=== PATIENT | male | born 1965 | race Caucasian/White ===

== ENCOUNTER 2018-03-18 00:14 | Outpatient (CLI) | payer BC, SELFPAY ==
[2018-03-18 10:39] LABS: HCT 45.3 % (40.0-50.0); HGB 15.9 g/dL (13.5-17.5); Mean Corp. HGB Concentration 35.1 g/dL (32.0-36.0); Mean Corpuscular Hemoglobin 30.2 pg (27.0-33.0); Mean Platelet Volume 9.6 fL (8.0-11.0); Platelet Count 182 x1000/uL (130-400); RBC 5.27 m/cumm (4.50-6.00); RBC Distribution Width 12.7 % (11.8-14.1); White Blood Cell Count 4.57 k/cumm (4.4-10.8)
[2018-03-18 10:59] LABS: ALT 32 U/L (12-78); AST 20 U/L (15-37); Albumin 3.9 g/dL (3.4-5.0); Alkaline Phosphatase 89 U/L (46-116); Anion Gap 6.8 mmol/L (3-11); BUN 19 mg/dL (7-18); Bilirubin, Total 0.6 mg/dL (0.2-1.0); CO2 30.2 mmol/L (21.0-32.0); CREATININE 1.26 mg/dL (0.70-1.30); Calcium 9.5 mg/dL (8.5-10.1); Chloride 105 mmol/L (98-107); Cholesterol 256 mg/dL (50-200); Estimated GFR 59.64 (mL/min/1.73m2); Glucose 102 mg/dL (70-100); HDL Cholesterol 43 mg/dL (40-60); LDL CHOLESTEROL 157 mg/dL (<100); Potassium 4.7 mmol/L (3.5-5.1); Sodium 142 mmol/L (136-145); Total Protein 6.8 g/dL (6.4-8.2); Triglyceride 207 mg/dL (30-150)
[2018-03-18 11:01] LABS: Hemoglobin A1C 5.5 % (4.5-6.2)
== END 2018-03-18 00:34 ==
PROVIDERS: PCP Nurse Practitioner; Visit Provider Nurse Practitioner
DX: E78.5 Hyperlipidemia, unspecified (principal); F20.9 Schizophrenia, unspecified; R73.01 Impaired fasting glucose
CPT/HCPCS: 36415; 80053; 80061; 83721; 85027; 83036

== ENCOUNTER 2018-06-17 00:58 | Outpatient (CLI) | payer BC, SELFPAY ==
[2018-06-17 09:25] LABS: Abs Immature Grans 0.03 k/cumm (0.0-0.09); Absolute Basophil Count 0.03 k/cumm (0.0-0.2); Absolute Lymphocyte Count 1.59 k/cumm (1.2-3.4); Absolute Monocyte Count 0.46 k/cumm (0.11-0.7); Absolute Neutrophil Count 2.91 k/cumm (1.2-6.7); Basophils % 0.6; HCT 45.6 % (40.0-50.0); HGB 16.2 g/dL (13.5-17.5); Immature Grans % 0.6; Lymphocytes % 31.1; Mean Corp. HGB Concentration 35.5 g/dL (32.0-36.0); Mean Corpuscular Hemoglobin 30.1 pg (27.0-33.0); Mean Corpuscular Volume 84.8 fL (80-95); Mean Platelet Volume 9.2 fL (8.0-11.0); Neutrophils % 56.7; Platelet Count 184 x1000/uL (130-400); RBC 5.38 m/cumm (4.50-6.00); RBC Distribution Width 12.7 % (11.8-14.1); White Blood Cell Count 5.12 k/cumm (4.4-10.8)
[2018-06-17 10:30] LABS: Cholesterol 231 mg/dL (50-200); HDL Cholesterol 41 mg/dL (40-60); LDL CHOLESTEROL 147 mg/dL (<100); Triglyceride 199 mg/dL (30-150)
== END 2018-06-17 01:18 ==
PROVIDERS: Nurse Practitioner Psychiatric/Mental Health; PCP Nurse Practitioner; Visit Provider Nurse Practitioner
DX: F20.9 Schizophrenia, unspecified (principal); E78.5 Hyperlipidemia, unspecified
CPT/HCPCS: 36415; 80061; 83721; 85025

== ENCOUNTER 2019-03-03 00:41 | Outpatient (CLI) | payer BC, SELFPAY ==
[2019-03-05 14:14] LABS: ALT 28 U/L (16-63); AST 18 U/L (15-37); Albumin 4.2 g/dL (3.4-5.0); Alkaline Phosphatase 90 U/L (46-116); Anion Gap 8.3 mmol/L (3-11); BUN 20 mg/dL (7-18); Bilirubin, Total 0.6 mg/dL (0.2-1.0); CO2 30.7 mmol/L (21.0-32.0); CREATININE 1.16 mg/dL (0.70-1.30); Calcium 9.4 mg/dL (8.5-10.1); Calculated LDL 190 mg/dL; Chloride 105 mmol/L (98-107); Cholesterol 265 mg/dL (<200); Glucose 96 mg/dL (74-106); HDL Cholesterol 41 mg/dL (40-60); Potassium 4.5 mmol/L (3.5-5.1); Sodium 144 mmol/L (136-145); Total Protein 7.2 g/dL (6.4-8.2); Triglyceride 172 mg/dL (<150)
[2019-03-06 08:55] LABS: Hemoglobin A1C 5.5 % (3.8-5.6)
== END 2019-03-03 01:01 ==
PROVIDERS: PCP Nurse Practitioner; Visit Provider Nurse Practitioner
DX: E11.9 Type 2 diabetes mellitus without complications (principal); E78.5 Hyperlipidemia, unspecified
CPT/HCPCS: 80053; 80061; 85027; 83036

== ENCOUNTER 2019-03-15 11:37 | Outpatient (CLI) | payer BC, SELFPAY ==
[2019-03-15 12:09] LABS: HCT 45.4 % (40.0-50.0); Mean Corp. HGB Concentration 35.2 g/dL (32.0-36.0); Mean Corpuscular Hemoglobin 29.9 pg (27.0-33.0); Mean Corpuscular Volume 84.9 fL (80-95); Mean Platelet Volume 9.4 fL (8.0-11.0); Platelet Count 209 x1000/uL (130-400); RBC 5.35 m/cumm (4.50-6.00); RBC Distribution Width 12.8 % (11.8-14.1); White Blood Cell Count 4.88 k/cumm (4.4-10.8)
== END 2019-03-15 11:57 ==
PROVIDERS: PCP Nurse Practitioner; Visit Provider Nurse Practitioner
DX: D72.9 Disorder of white blood cells, unspecified (principal)
CPT/HCPCS: 36415; 85027

== ENCOUNTER 2020-03-19 04:55 | Outpatient (CLI) | payer BC, SELFPAY ==
[2020-03-19 08:34] LABS: HGB 15.9 g/dL (13.5-17.5); MCH 29.8 pg (27.0-33.0); MCHC 34.6 % (32.0-36.0); MCV 86.3 fL (80-95); Platelet Count 178 10^3/uL (130-400); RBC 5.33 10^6/uL (4.36-5.78); RDW 12.2 % (11.8-14.1); RDW-SD 37.9 fL; WBC 5.28 10^3/uL (4.4-10.8)
[2020-03-19 11:01] LABS: ALT 26 U/L (16-63); AST 17 U/L (15-37); Albumin 4.1 g/dL (3.4-5.0); Alkaline Phosphatase 87 U/L (46-116); Anion Gap 8.9 mmol/L (3-11); BUN 17 mg/dL (7-18); Bilirubin, Total 0.9 mg/dL (0.2-1.0); CO2 28.1 mmol/L (21.0-32.0); CREATININE 1.24 mg/dL (0.70-1.30); Calcium 8.8 mg/dL (8.5-10.1); Calculated LDL 148 mg/dL (<100); Chloride 104 mmol/L (98-107); Cholesterol 232 mg/dL (<200); Glucose 100 mg/dL (74-106); HDL Cholesterol 41 mg/dL (40-60); Potassium 4.8 mmol/L (3.5-5.1); Sodium 141 mmol/L (136-145); Total Protein 6.8 g/dL (6.4-8.2); Triglyceride 217 mg/dL (<150)
== END 2020-03-19 05:15 ==
PROVIDERS: PCP Nurse Practitioner; Visit Provider Nurse Practitioner
DX: E78.5 Hyperlipidemia, unspecified (principal); F20.9 Schizophrenia, unspecified
CPT/HCPCS: 36415; 80053; 80061; 85027

== ENCOUNTER 2021-04-03 01:57 | Outpatient (CLI) | payer BC, SELFPAY ==
[2021-04-03 09:10] LABS: HCT 47.3 % (40.0-50.0); HGB 16.1 g/dL (13.5-17.5); MCH 29.3 pg (27.0-33.0); MCV 86.2 fL (80-95); MPV 9.3 fL (8.0-11.0); Platelet Count 198 10^3/uL (130-400); RBC 5.49 10^6/uL (4.36-5.78); RDW 12.2 % (11.8-14.1); RDW-SD 38.7 fL; WBC 5.19 10^3/uL (4.4-10.8)
[2021-04-03 09:21] LABS: Hemoglobin A1C 5.2 % (<5.7)
[2021-04-03 10:03] LABS: ALT 26 U/L (16-63); AST 18 U/L (15-37); Alkaline Phosphatase 93 U/L (46-116); Anion Gap 7.9 mmol/L (3-11); BUN 18 mg/dL (7-18); Bilirubin, Total 0.5 mg/dL (0.2-1.0); CO2 30.1 mmol/L (21.0-32.0); CREATININE 1.2 mg/dL (0.70-1.30); Calculated LDL 167 mg/dL (<100); Chloride 103 mmol/L (98-107); Cholesterol 250 mg/dL (<200); Glucose 105 mg/dL (74-106); HDL Cholesterol 47 mg/dL (40-60); Potassium 4.5 mmol/L (3.5-5.1); Sodium 141 mmol/L (136-145); Triglyceride 181 mg/dL (<150)
== END 2021-04-03 01:58 | disposition home or self-care (01) ==
LOC: LBO 01:57
PROVIDERS: PCP Nurse Practitioner; Visit Provider Nurse Practitioner
DX: E78.5 Hyperlipidemia, unspecified (principal); F20.9 Schizophrenia, unspecified; R73.01 Impaired fasting glucose; E11.9 Type 2 diabetes mellitus without complications
CPT/HCPCS: 36415; 80053; 80061; 85027; 83036

== ENCOUNTER 2022-04-06 03:22 | Outpatient (CLI) | payer OTHER, SELFPAY ==
[2022-04-06 07:54] LABS: Abs Immature Grans 0.01 10^3/uL (0.0-0.06); Absolute Basophil Count 0.04 10^3/uL (0.0-0.2); Absolute Eosinophil Count 0.13 10^3/uL (0.0-0.7); Absolute Lymphocyte Count 1.74 10^3/uL (1.2-3.4); Absolute Monocyte Count 0.44 10^3/uL (0.1-0.8); Basophils % 0.8; Eosinophils % 2.6; HCT 46.6 % (40.0-50.0); Immature Grans % 0.2; Lymphocytes % 35.1; MCH 29.7 pg (27.0-33.0); MCHC 34.3 % (32.0-36.0); MCV 87 fL (80-95); MPV 9.3 fL (8.0-11.0); Monocytes % 8.9; Neutrophils % 52.4; Platelet Count 174 10^3/uL (130-400); RBC 5.38 10^6/uL (4.36-5.78); RDW 12.1 % (11.8-14.1); RDW-SD 38.3 fL; WBC 4.96 10^3/uL (4.4-10.8)
[2022-04-06 08:04] LABS: Hemoglobin A1C 5.3 % (<5.7)
[2022-04-06 08:44] LABS: ALT 22 U/L (16-63); AST 20 U/L (15-37); Albumin 4.1 g/dL (3.4-5.0); Alkaline Phosphatase 93 U/L (46-116); Anion Gap 6.9 mmol/L (3-11); BUN 20 mg/dL (7-18); Bilirubin, Total 0.6 mg/dL (0.2-1.0); CO2 29.1 mmol/L (21.0-32.0); CREATININE 1.2 mg/dL (0.70-1.30); Calcium 9.6 mg/dL (8.5-10.1); Calculated LDL 190 mg/dL (<100); Chloride 104 mmol/L (98-107); Cholesterol 269 mg/dL (<200); Glucose 106 mg/dL (74-106); HDL Cholesterol 49 mg/dL (40-60); Potassium 4.5 mmol/L (3.5-5.1); Sodium 140 mmol/L (136-145); Total Protein 7.2 g/dL (6.4-8.2); Triglyceride 153 mg/dL (<150)
== END 2022-04-06 03:23 | disposition home or self-care (01) ==
LOC: LBO 03:22
PROVIDERS: PCP Nurse Practitioner; Visit Provider Nurse Practitioner
DX: R73.01 Impaired fasting glucose (principal); E78.5 Hyperlipidemia, unspecified; F20.9 Schizophrenia, unspecified; Z79.899 Other long term (current) drug therapy
CPT/HCPCS: 36415; 80053; 80061; 83036; 85025

== ENCOUNTER 2023-04-28 04:22 | Outpatient (CLI) | payer OTHER, SELFPAY ==
[2023-04-28 08:12] LABS: Abs Immature Grans 0.03 10^3/uL (0.0-0.06); Absolute Basophil Count 0.06 10^3/uL (0.0-0.2); Absolute Eosinophil Count 0.15 10^3/uL (0.0-0.7); Absolute Lymphocyte Count 1.66 10^3/uL (1.2-3.4); Absolute Monocyte Count 0.54 10^3/uL (0.1-0.8); Absolute Neutrophil Count 2.62 10^3/uL (1.2-6.7); Basophils % 1.2; HCT 48.5 % (40.0-50.0); HGB 16.6 g/dL (13.5-17.5); Immature Grans % 0.6; Lymphocytes % 32.8; MCH 29.4 pg (27.0-33.0); MCHC 34.2 % (32.0-36.0); MCV 86 fL (80-95); MPV 8.9 fL (8.0-11.0); Monocytes % 10.7; Neutrophils % 51.7; Platelet Count 210 10^3/uL (130-400); RBC 5.65 10^6/uL (4.36-5.78); RDW 12.7 % (11.8-14.1); RDW-SD 39.3 fL; WBC 5.06 10^3/uL (4.4-10.8)
[2023-04-28 08:15] LABS: Hemoglobin A1C 5.2 % (<5.7)
[2023-04-28 08:25] LABS: ALT 32 U/L (16-63); AST 19 U/L (15-37); Alkaline Phosphatase 104 U/L (46-116); Anion Gap 11.3 mmol/L (3-11); BUN 22 mg/dL (7-18); Bilirubin, Total 0.6 mg/dL (0.2-1.0); CO2 27.7 mmol/L (21.0-32.0); CREATININE 1.2 mg/dL (0.70-1.30); Calcium 9.8 mg/dL (8.5-10.1); Calculated LDL 183 mg/dL (<100); Chloride 105 mmol/L (98-107); Cholesterol 265 mg/dL (<200); Estimated GFR 69.66 (mL/min/1.73m2); Glucose 114 mg/dL (74-106); HDL Cholesterol 57 mg/dL (40-60); Potassium 4.8 mmol/L (3.5-5.1); Sodium 144 mmol/L (136-145); Total Protein 7.5 g/dL (6.4-8.2); Triglyceride 129 mg/dL (<150)
[2023-04-28 18:46] LABS: PSA, Screening 0.7 ng/mL (<=3.5)
== END 2023-04-28 04:23 | disposition home or self-care (01) ==
LOC: LBO 04:22
PROVIDERS: PCP Nurse Practitioner; Referring Provider Nurse Practitioner; Visit Provider Nurse Practitioner
DX: E78.5 Hyperlipidemia, unspecified (principal); F20.9 Schizophrenia, unspecified; R73.01 Impaired fasting glucose; R35.0 Frequency of micturition
CPT/HCPCS: 36415; 80053; 80061; 84153; 83036; 85025

== ENCOUNTER 2024-05-04 00:42 | Outpatient (CLI) | payer OTHER, SELFPAY ==
[2024-05-04 08:09] LABS: Abs Immature Grans 0.02 10^3/uL (0.0-0.06); Absolute Basophil Count 0.04 10^3/uL (0.0-0.2); Absolute Lymphocyte Count 1.67 10^3/uL (1.2-3.4); Absolute Monocyte Count 0.49 10^3/uL (0.1-0.8); Basophils % 0.8 %; HCT 46.3 % (40.0-50.0); HGB 15.9 g/dL (13.5-17.5); Immature Grans % 0.4 %; Lymphocytes % 33.9 %; MCH 30.3 pg (27.0-33.0); MCHC 34.3 % (32.0-36.0); MCV 88 fL (80-95); MPV 9.2 fL (8.0-11.0); Neutrophils % 52.9 %; Platelet Count 186 10^3/uL (130-400); RBC 5.25 10^6/uL (4.36-5.78); RDW 12.6 % (11.8-14.1); RDW-SD 40.6 fL; WBC 4.92 10^3/uL (4.4-10.8)
[2024-05-04 08:20] LABS: Hemoglobin A1C 5.4 % (<5.7)
[2024-05-04 08:30] LABS: ALT 30 U/L (16-63); AST 21 U/L (15-37); Alkaline Phosphatase 96 U/L (46-116); Anion Gap 6.5 mmol/L (3-11); BUN 16 mg/dL (7-18); Bilirubin, Total 0.71 mg/dL (0.2-1.0); CO2 30.5 mmol/L (21.0-32.0); CREATININE 1.2 mg/dL (0.70-1.30); Calcium 9.4 mg/dL (8.5-10.1); Calculated LDL 170 mg/dL (<100); Chloride 106 mmol/L (98-107); Cholesterol 256 mg/dL (<200); Estimated GFR 69.23 (mL/min/1.73m2); Glucose 106 mg/dL (74-106); HDL Cholesterol 59 mg/dL (40-60); Potassium 4.7 mmol/L (3.5-5.1); Sodium 143 mmol/L (136-145); Total Protein 7.2 g/dL (6.4-8.2); Triglyceride 135 mg/dL (<150)
[2024-05-04 19:28] LABS: PSA, Screening 0.8 ng/mL (<=4.5)
== END 2024-05-04 00:43 | disposition home or self-care (01) ==
PROVIDERS: PCP Nurse Practitioner; Referring Provider Nurse Practitioner; Visit Provider Nurse Practitioner
DX: R73.01 Impaired fasting glucose (principal); E78.5 Hyperlipidemia, unspecified; Z12.5 Encounter for screening for malignant neoplasm of prostate; Z80.42 Family history of malignant neoplasm of prostate
CPT/HCPCS: 36415; 80053; 80061; 84153; 83036; 85025